=== PATIENT | female | born 1940 | race Caucasian/White ===

== ENCOUNTER 2017-08-25 11:44 | Inpatient (IN) | payer MEDICARE, OTHER ==
[~2017-08-25] VITALS: Ht 160 cm; Wt 79.8 kg
[~2017-08-25 11:44] MED LIST: AMBIEN 5 MG TABL5 M1 PO; ASPIR 8181 MG PO; COREG3.125 MG PO; CYMBALTA20 MG PO; ELIQUIS5 MG PO; HYDROCODON-ACE1 EAC7 PO; KLOR-CON 1010 MEQ PO; LASIX 40 MG TAB40 M2 PO; LIPITOR10 MG PO; LISINOPRIL20 MG PO; NITROGLYCERIN0.4 MG SUBLING; OMEPRAZOLE40 MG PO; PACERONE 200 M200 M1 PO; PEPCID20 MG PO; PLAVIX 75 MG TA75 M1 PO; PRINIVIL5 MG PO
[2017-08-25 11:45] VITALS: BP 184/83
[2017-08-25] MEDS ORDERED: ASPIRIN81 M2 PO (11:49)
[2017-08-25] MEDS ORDERED: ELIQUIS2.5 MG PO (11:49)
[2017-08-25 12:21] LABS: ABSOLUTE EOSINOPHILS 0.1 thou/uL (0.0-0.7); ABSOLUTE LYMPHOCYTES 1.5 thou/uL (0.8-5.3); ABSOLUTE MONOCYTES 0.7 thou/uL (0.0-1.2); ABSOLUTE NEUTROPHILS 4.4 thou/uL (1.6-8.1); BASOPHILS 0.4 %; EOSINOPHILS 2.2 %; HEMATOCRIT 39.8 % (37.0-47.0); HEMOGLOBIN 13.2 gm/dL (12.0-15.0); LYMPHOCYTES 22.4 %; MCH 29.4 pg (26.0-34.0); MCHC 33.1 g/dL (28.0-37.0); MCV 88.7 fL (80.0-100.0); MONOCYTES 10.3 %; MPV 9.8 fl. (7.2-11.1); NUCLEATED RBCS 0 /100WBC; PLATELET COUNT* 195 thou/uL (150-400); POLYS 64.7 %; RBC 4.49 mil/uL (4.20-5.00); RDW-CV 15.9 % (10.5-14.5); WBC 6.8 thou/uL (4.0-11.0)
[2017-08-25 12:26] LABS: ANION GAP 5 mmol/L (7-16); BUN 22 mg/dL (7-18); CALCIUM 8.3 mg/dL (8.5-10.1); CHLORIDE 107 mmol/L (98-107); CO2 30 mmol/L (21-32); CREATININE 1.3 mg/dL (0.6-1.3); GLUCOSE 100 mg/dL (70-99); POTASSIUM 4.7 mmol/L (3.5-5.1); SODIUM 142 mmol/L (136-145)
[2017-08-25 12:31] LABS: APTT 28.7 Seconds (25.0-31.3); PROTIME 10.1 Seconds (9.20-11.50)
[2017-08-25 12:42] LABS: ALKALINE PHOSPHATASE 97 U/L (46-116); SGOT 22 U/L (15-37); SGPT 27 U/L (30-65); TOTAL BILIRUBIN 0.2 mg/dL (<0.1-1.0); TOTAL PROTEIN 6.7 g/dL (6.4-8.2); TROPONIN-I LEVEL <0.06 ng/mL (<0.06)
[2017-08-25 13:07] LABS: URINE BILIRUBIN NEGATIVE (Negative); URINE BLOOD 1+ (Negative); URINE CLARITY CLEAR; URINE COLOR YELLOW; URINE GLUCOSE-RANDOM NEGATIVE (Negative); URINE KETONES TRACE (Negative); URINE LEUKOCYTES-REFLEX NEGATIVE (Negative); URINE NITRITE-REFLEX NEGATIVE (Negative); URINE PROTEIN NEGATIVE (Negative); URINE SPECIFIC GRAVITY 1.025 (1.005-1.030); URINE UROBILINOGEN 0.2 E.U./dl (0.2-1.0)
[2017-08-25 13:14] LABS: BACTERIA-REFLEX 1-9 Few /HPF (None Seen); CASTS None Seen /LPF (None Seen); CRYSTALS None Seen /LPF (None Seen); MUCUS None Seen strn/LPF (None Seen); SQUAMOUS 0-3 Few /LPF (0-3); URINE RBC 3-10 Few /HPF (0-2); URINE WBC-REFLEX 0-5 Rare /HPF (0-5)
[2017-08-25 14:45] VITALS: BP 148/66
--- NOTE | 2017-08-25 14:50 | EKG ---
[place] [address] ELECTROCARDIOGRAM REPORT Name: EVE COLLADO Room: [address] ADM IN .R.#: [id number] Admission: 08/25/17 Attend Phys: Veronica Long Discharge: Date of : 42 Report #: [id number] THIS REPORT FOR: //name// [facility] ED Test Date: 2017-08-25 Test Time: 12:30:23 Pat Name: EVEVINCENT MISTRYKLEBER Department: Room: [facility] Gender: F Denture Packer: JOAN : 1940 Requested By: Lance Minaya Order Number: [id number] MD: Gary Thomas Measurements Intervals Aurora Rate: 71 P: 13 WV: 181 QRS: -22 QRSD: 101 T: 19 QT: 397 QTc: 432 Interpretive Statements Sinus rhythm Borderline left axis deviation Borderline T abnormalities, anterior leads Compared to ECG 06/01/2016 07:41:05 Ventricular premature complex(es) no longer present Left ventricular hypertrophy no longer present Q waves no longer present Prolonged QT interval no longer present T-wave abnormality still present Electronically Signed On 08-25-2017 14:49:59 CDT by Gary Thomas [email or web address] <ELECTRONICALLY SIGNED> By: Gary Thomas MD, FACC 08/25/17 1449 1230 1230 Gary Thomas MD, FAC /EPI
[2017-08-25 15:40] VITALS: BP 143/61
[2017-08-25 19:45] VITALS: BP 111/60
[2017-08-26 05:06] LABS: MCH 29.6 pg (26.0-34.0); MCHC 33.8 g/dL (28.0-37.0); MCV 87.7 fL (80.0-100.0); MPV 10.1 fl. (7.2-11.1); RBC 3.77 mil/uL (4.20-5.00); RDW-CV 15.8 % (10.5-14.5); WBC 8.6 thou/uL (4.0-11.0)
[2017-08-26 05:15] LABS: APTT 29.3 Seconds (25.0-31.3); INR 1.1; PROTIME 10.4 Seconds (9.20-11.50)
[2017-08-26 05:18] LABS: HEMOGLOBIN 11.1 gm/dL (12.0-15.0)
[2017-08-26 05:24] LABS: ALBUMIN 2.5 g/dL (3.4-5.0); CALCIUM 7.9 mg/dL (8.5-10.1); CREATININE 1.2 mg/dL (0.6-1.3); POTASSIUM 4.7 mmol/L (3.5-5.1); TOTAL BILIRUBIN 0.4 mg/dL (<0.1-1.0); TOTAL PROTEIN 5.6 g/dL (6.4-8.2)
[2017-08-26 16:40] VITALS: BP 134/64
[2017-08-26 19:50] VITALS: BP 150/52
[2017-08-27 00:21] VITALS: BP 127/71
[2017-08-27 01:18] VITALS: BP 127/71
[2017-08-27 04:15] VITALS: BP 125/53
[2017-08-27 04:29] LABS: ALBUMIN 2.4 g/dL (3.4-5.0); CALCIUM 8.1 mg/dL (8.5-10.1); CREATININE 1.3 mg/dL (0.6-1.3); HEMATOCRIT 33.2 % (37.0-47.0); HEMOGLOBIN 11.1 gm/dL (12.0-15.0); MCH 29.7 pg (26.0-34.0); MCHC 33.5 g/dL (28.0-37.0); MCV 88.5 fL (80.0-100.0); MPV 10.4 fl. (7.2-11.1); RBC 3.75 mil/uL (4.20-5.00); RDW-CV 15.6 % (10.5-14.5); TOTAL BILIRUBIN 0.3 mg/dL (<0.1-1.0); TOTAL PROTEIN 5.7 g/dL (6.4-8.2); WBC 9.5 thou/uL (4.0-11.0)
[2017-08-27 07:44] VITALS: BP 125/59
[2017-08-27 10:19] VITALS: BP 127/71
[2017-08-27 21:00] VITALS: BP 135/61
[2017-08-28 00:05] VITALS: BP 159/66
[2017-08-28 04:05] VITALS: BP 141/59
[2017-08-28 04:32] LABS: HEMATOCRIT 27.4 % (37.0-47.0); HEMOGLOBIN 9.2 gm/dL (12.0-15.0); MCH 29.7 pg (26.0-34.0); MCHC 33.6 g/dL (28.0-37.0); MCV 88.3 fL (80.0-100.0); MPV 10.3 fl. (7.2-11.1); RBC 3.1 mil/uL (4.20-5.00); WBC 15.2 thou/uL (4.0-11.0)
[2017-08-28 04:44] LABS: CALCIUM 7.9 mg/dL (8.5-10.1); CREATININE 1.2 mg/dL (0.6-1.3); POTASSIUM 4.9 mmol/L (3.5-5.1); TOTAL BILIRUBIN 0.2 mg/dL (<0.1-1.0); TOTAL PROTEIN 5.2 g/dL (6.4-8.2)
--- NOTE | 2017-08-28 07:40 | OP ---
[address] [address] OPERATIVE REPORT Name: EVE COLLADO Room: [address] IN .R.#: [id number] Admission: 08/25/17 Attend Phys: Veronica Long Discharge: Date of : 42 Report #: [id number] THIS REPORT FOR: //name// CC: Parisa Cantu DICTATED BY: Colby Lawler DO DATE OF SERVICE: 08/27/2017 PREOPERATIVE DIAGNOSIS: Periprosthetic right distal femur fracture. POSTOPERATIVE DIAGNOSIS: Periprosthetic right distal femur fracture. PRIMARY SURGEON: Canelo Navas DO FIBER DESIGN ENGINEER: Colby Lawler DO SECOND BARBERING INSTRUCTOR: Joselo Manjarrez DO PROCEDURE PERFORMED: Right distal femoral replacement. ANESTHESIA: General with local capsular block. ESTIMATED BLOOD LOSS: 500 mL. SPECIMENS: Tibial and femoral total knee components. COMPLICATIONS: None. TOURNIQUET: 110 minutes. ANTIBIOTICS: 2 grams Ancef IV preoperatively. IMPLANTS: A Link distal femoral replacement with a small right femoral component, a 40 mm femoral coupling component, 130 mm length x 14 mm in width femoral stem, a size small tibial component with a 5 mm buildup and a 12 mm x 100 mm intramedullary stem. One Dall-Miles cable prophylactically and 2 bags of Simplex cement with antibiotics. INDICATIONS FOR PROCEDURE: The patient is a 77-year-old female that unfortunately suffered the above-mentioned injury earlier this week due to her fracture being very distal to her component. It was recommended she undergo a distal femoral replacement due to limited bone stock. I did not feel her injury was amenable to open reduction and internal fixation. She presents today for [address] [address] OPERATIVE REPORT Name: LYNDAEVE QUACH Rima Room: [address] IN .R.#: [id number] Admission: 08/25/17 Attend Phys: Veronica Long Discharge: Date of : 42 Report #: [id number] above-mentioned procedure. Risks, benefits, complications and alternatives of surgery have been thoroughly reviewed with her and she is wishing to proceed. DESCRIPTION OF PROCEDURE: The patient taken to the OR suite, placed supine on OR table, given the benefit of general anesthetic. A well-padded tourniquet placed in the right upper thigh. She was then prepped and draped in the usual sterile fashion. Prior to procedure, timeout was taken confirming correct site, patient and procedure. Procedure began utilizing her prior midline incision from her previous total knee scar. Dissection was carried down through skin and subcutaneous tissue to the level of the joint capsule. A second knife was used to form a medial parapatellar capsulotomy. This was extended proximally, splitting the quadriceps muscle and distally down to the tibial tubercle. There was fracture hematoma encountered. No signs of infection or loosening of her components. A medial periosteal sleeve was developed off the tibia and the patella was subluxated laterally. The inline traction was placed on the leg and held to approximate her joint line. A marked measuring 95 mm proximal on the femoral shaft was then made. A second line was made referencing her anterior portion of the femur for rotation. We then proceeded to extract the poly and femoral component. The remaining capsule was released directly off bone from the femoral component with electrocautery. There was significant bone loss. It did not appear that this component would have been held. Adequate fixation of a plate was utilized. There was significant comminution as well. All excess bone off the distal femur was removed and the component was removed. A lap sponge was placed on the femoral shaft and this was used to elevate it and hold it superior for retraction. We then proceeded to explant the tibial component. This was well seated. There do not appear to be any signs of loosening. This was done using flexible osteotomes. There was minimal bone loss when removing his prosthesis. No signs of infection or osteolysis seen. We then proceeded to ream the tibial shaft. This was at a depth of 100 mm range up to a size 12 stem. A small trial baseplate was placed in appropriate rotation and referencing the medial third tibial tubercle. The proximal tibia was repaired with a keel punch and intramedullary reamer proximally as well. The trial tibial component was then placed. We then directed our attention to the femur referencing her prior samantha. Remaining bone of the distal femur was cut at 95 mm length. The femoral canal was then reamed with a 130 mm reamer up to a size 13. This provided good fit within the cortical bone. We then placed our trial femoral component and this was connected to the tibial component with the hinged post. A 40 mm paunch trimmer provided the appropriate amount of joint tensioning and the knee was taken through range of motion. Patella was found to be tracking well. The patella was not resurfaced and do not appear to have any signs of loosening. Minimal wear in the patellar button. Next, all implants were removed. The tibia and femur were thoroughly irrigated with Pulsavac. Final components were assembled on the back table and cemented with antibiotics was mixed. Final implants were placed beginning with the tibial stem and tray followed by the femur. Femoral rotation was adjusted by referencing her anterior line, tibial rotation via the tibial tubercle. Both components were [address] [place] [address] OPERATIVE REPORT Name: EVE COLLADO Room: [address] IN M.R.#: [id number] Admission: 08/25/17 Attend Phys: Veronica Long Discharge: Date of : 42 Report #: [id number] while cement adequately carried. All excess cement was removed. Once cement had set, the final hinged paunch trimmer was then placed with the final polyethylene insert. The knee was taken through range of motion. Patella was found to be tracking well. Alignment in good position. TXA was placed to the wound. Tourniquet was let down for a total time of 110 minutes. Hemostasis was obtained. There did not appear to be any arterial bleeding. A local capsular block was performed. A medium Hemovac drain was placed. The capsule was closed with interrupted #1 Vicryl followed by interrupted 2-0 Vicryl subcuticular and neal for skin. Sterile dressings were applied with a compression dressing. The patient tolerated procedure well. She was transferred to the PACU in stable condition. All sponge and needle counts correct x 2. <ELECTRONICALLY SIGNED> By: Cuong Tony DO 08/28/17 0740 1607 1800Canelo Navas DO /nt
[2017-08-28 08:00] VITALS: BP 110/50
[2017-08-28 16:29] VITALS: BP 141/51
[2017-08-28 22:00] VITALS: BP 146/60
[2017-08-28 23:48] VITALS: BP 142/58
[2017-08-29 03:48] VITALS: BP 121/51
[2017-08-29 04:01] LABS: HEMATOCRIT 23.7 % (37.0-47.0); HEMOGLOBIN 7.9 gm/dL (12.0-15.0); MCH 29.7 pg (26.0-34.0); MCHC 33.4 g/dL (28.0-37.0); MCV 88.9 fL (80.0-100.0); MPV 9.9 fl. (7.2-11.1); RBC 2.67 mil/uL (4.20-5.00); RDW-CV 15.2 % (10.5-14.5); WBC 12.5 thou/uL (4.0-11.0)
[2017-08-29 04:30] LABS: ALBUMIN 1.9 g/dL (3.4-5.0); CALCIUM 7.7 mg/dL (8.5-10.1); POTASSIUM 4.3 mmol/L (3.5-5.1); TOTAL BILIRUBIN 0.3 mg/dL (<0.1-1.0); TOTAL PROTEIN 5.1 g/dL (6.4-8.2)
[2017-08-29 08:20] VITALS: BP 135/42
[2017-08-29 16:00] VITALS: BP 91/42
[2017-08-29 21:45] VITALS: BP 123/55
[2017-08-30 00:06] VITALS: BP 120/53
[2017-08-30 04:00] VITALS: BP 104/38
[2017-08-30 04:10] LABS: HEMATOCRIT 22.1 % (37.0-47.0); HEMOGLOBIN 7.5 gm/dL (12.0-15.0); MCH 29.4 pg (26.0-34.0); MCHC 33.7 g/dL (28.0-37.0); MCV 87.2 fL (80.0-100.0); RBC 2.53 mil/uL (4.20-5.00); RDW-CV 15.1 % (10.5-14.5); WBC 11.6 thou/uL (4.0-11.0)
[2017-08-30 04:31] LABS: ALBUMIN 1.7 g/dL (3.4-5.0); CALCIUM 7.6 mg/dL (8.5-10.1); POTASSIUM 4.2 mmol/L (3.5-5.1); TOTAL BILIRUBIN 0.3 mg/dL (<0.1-1.0); TOTAL PROTEIN 5.1 g/dL (6.4-8.2)
[2017-08-30 08:30] VITALS: BP 125/53
[2017-08-30 16:00] VITALS: BP 104/44
[2017-08-30 20:47] VITALS: BP 141/64; BP 150/79
[2017-08-31 01:15] VITALS: BP 125/47
[2017-08-31 04:26] LABS: HEMATOCRIT 22.2 % (37.0-47.0); HEMOGLOBIN 7.4 gm/dL (12.0-15.0); MCH 29.3 pg (26.0-34.0); MCHC 33.2 g/dL (28.0-37.0); MCV 88.4 fL (80.0-100.0); MPV 9.3 fl. (7.2-11.1); RBC 2.51 mil/uL (4.20-5.00); RDW-CV 15.4 % (10.5-14.5); WBC 9.4 thou/uL (4.0-11.0)
[2017-08-31 04:44] LABS: ALBUMIN 1.6 g/dL (3.4-5.0); CREATININE 1.1 mg/dL (0.6-1.3); POTASSIUM 4.5 mmol/L (3.5-5.1); TOTAL BILIRUBIN 0.3 mg/dL (<0.1-1.0); TOTAL PROTEIN 5.1 g/dL (6.4-8.2)
[2017-08-31 08:30] VITALS: BP 143/56
--- NOTE | 2017-08-31 10:59 | S ---
[place] [address] SURGICAL PATH RPT PROCEDURE Name: MELI FARFAN Room: [address] IN M.R.#: [id number] Admission: 08/25/17 Date of : 42 Discharge: Report #: [id number] Path Case #: [id number] PATHOLOGY REPORT COLLECTION DATE: 08/27/2017 RECEIVED DATE: 08/27/2017 SUBMITTING PHYS: Dr. Canelo Navas OTHER PHYS: Dr. Suhail Thomas SPECIMEN(S) RECEIVED: A.R femur, yeimy prosthetic implants and fracture * * * * * * * * * * * * FINAL DIAGNOSIS: Right periprosthetic fracture femur and implants (explants): - Benign and viable bone fragments including hematopoietic elements with evidence of fracture including fresh stromal hemorrhage. - Grossly-identified prosthetic knee components and orthopedic cement. (JOSHUA:pit; 08/31/2017) PATHOLOGIST: Wade Poole M.D. REPORT ELECTRONICALLY SIGNED BY: Wade Poole M.D. DATE/TIME: 08/31/2017 10:58 * * * * * * * * * * * * GROSS PATHOLOGY: The specimen is received in formalin labeled "Meli Farfan, right periprosthetic fracture femur and explants," and additionally labeled on the requisition as, "right femur fracture periprosthetic implants and fracture". Received are multiple segments of bone measuring 13.1 x 7.7 x 3.7 cm in aggregate dimensions. Hogshead Liner sections are submitted in cassette A1, following decalcification. Also received within the specimen container is a segment of white plastic measuring 6.7 x 4.1 x 2.3 cm, a metallic anvil measuring 3.1 x 4.3 x 4.8 cm, and a segment of curved silver metal, with adherent bone cement and bone, measuring 8.3 x 6.3 x 5.7 cm. Gross photographs are taken. (CAA; 08/28/2017) CLINICAL HISTORY: Right distal [place] [address] SURGICAL PATH RPT PROCEDURE Name: MELI FARFAN Room: [address] IN M.R.#: [id number] Admission: 08/25/17 Date of : 42 Discharge: Report #: [id number] Path Case #: [id number] INITIAL CPT CODE(S): A; 22554, 07981 Professional services performed by [facility] at [facility] [address] [place] [address] Technical services performed by [facility] at [address] [place] [address], [facility] [address] [address]. [facility] [address] [place] [address] PHONE: [phone] DIRECTOR: Vladislav Batres M.D. * * * END OF REPORT * * *
[2017-08-31 11:34] VITALS: BP 129/50
[2017-08-31] MEDS ORDERED: OXYCODONE HCL 55 MG PO (12:27)
[2017-08-31] MEDS ORDERED: PHENERGAN 25 MG25 M1 PO (12:28)
[2017-08-31] MEDS ORDERED: PROTONIX40 M1 PO (12:29)
[2017-08-31] MEDS ORDERED: TYLENOL325 MG PO (12:31)
[2017-08-31] MEDS ORDERED: ONDANSETRON HCL4 M2 PO (12:31)
[2017-08-31] MEDS ORDERED: NORCO 5-325 TA1 EACH PO (12:33)
[2017-08-31] MEDS ORDERED: MELATONIN5 M4 PO (12:35)
[2017-08-31] MEDS ORDERED: MILK OF MA2400 MG/10 PO (12:36)
[2017-08-31] MEDS ORDERED: MAG-AL PLUS SUS30 ML PO (12:37)
[2017-08-31] MEDS ORDERED: AMBIEN 5 MG TABL5 M1 PO (12:38)
[2017-08-31] MEDS ORDERED: BISACODYL SUPP10 MG PO (12:39)
[2017-08-31] MEDS ORDERED: BENADRYL25 MG PO (12:40)
[2017-08-31] MEDS ORDERED: COLACE100 MG PO (12:41)
[2017-08-31] MEDS ORDERED: ASPIRIN325 PO (12:44)
[2017-08-31] MEDS ORDERED: IRON325 PO (15:34)
--- NOTE | 2017-09-14 15:06 | CON ---
[address] [address] CONSULTATION Name: EVE COLLADO Room: [address] IN M.R.#: [id number] Admission: 08/25/17 Attend Phys: Veronica Long Discharge: 08/31/17 Date of : 42 Report #: [id number] THIS REPORT FOR: //name// CC: Parisa Cantu The patient is admitted to Orthopedic Surgery status post fall, sustaining a right periprosthetic distal femur fracture. The patient was appropriate for rehabilitation on the day the consult was requested. Admission to inpatient rehabilitation was also facilitated, therefore full consultation was not completed, full to inpatient rehabilitation history and physical has been completed. <ELECTRONICALLY SIGNED> By: Robyn Hodgson DO 09/14/17 1506 1055 [id number] Hodgson DO /nt
== END 2017-08-31 14:50 | DRG 466 ==
LOC: M.ERS 11:44 → M.ORTHSURG 13:13 → M.TBA-ER 13:13 → M.ORTHSURG 14:40
PROVIDERS: Family Medicine; ADMIT Internal Medicine
PROC: 3E0T3BZ Introduction of Anesthetic Agent into Peripheral Nerves and Plexi, Percutaneous Approach (ICD-10-PCS; principal; 2017-08-27)
PROC: 0SRV0J9 Replacement of Right Knee Joint, Tibial Surface with Synthetic Substitute, Cemented, Open Approach (ICD-10-PCS; 2017-08-27)
PROC: 0SRT0J9 Replacement of Right Knee Joint, Femoral Surface with Synthetic Substitute, Cemented, Open Approach (ICD-10-PCS; 2017-08-27)
PROC: 0SPT0JZ Removal of Synthetic Substitute from Right Knee Joint, Femoral Surface, Open Approach (ICD-10-PCS; 2017-08-27)
PROC: 0SPV0JZ Removal of Synthetic Substitute from Right Knee Joint, Tibial Surface, Open Approach (ICD-10-PCS; 2017-08-27)
DX: M97.11XA Periprosthetic fracture around internal prosthetic right knee joint, initial encounter (principal); E43 Unspecified severe protein-calorie malnutrition; Z96.651 Presence of right artificial knee joint; E78.5 Hyperlipidemia, unspecified; I50.9 Heart failure, unspecified; I11.0 Hypertensive heart disease with heart failure; K21.9 Gastro-esophageal reflux disease without esophagitis; D64.9 Anemia, unspecified; I48.91 Unspecified atrial fibrillation; I25.10 Atherosclerotic heart disease of native coronary artery without angina pectoris; Z90.49 Acquired absence of other specified parts of digestive tract; Z79.899 Other long term (current) drug therapy; Z79.82 Long term (current) use of aspirin; I25.2 Old myocardial infarction; Z68.31 Body mass index [BMI] 31.0-31.9, adult

== ENCOUNTER 2017-08-31 13:51 | Inpatient (IN) | payer MEDICARE, OTHER ==
[~2017-08-31] VITALS: Ht 162.6 cm; Wt 80.2 kg
[~2017-08-31 13:51] MED LIST changes: +ASPIRIN325 PO; +ASPIRIN81 M2 PO; +BENADRYL25 MG PO; +BISACODYL SUPP10 MG PO; +COLACE100 MG PO; +ELIQUIS2.5 MG PO; +MAG-AL PLUS SUS30 ML PO; +MELATONIN5 M4 PO; +MILK OF MA2400 MG/10 PO; +NORCO 5-325 TA1 EACH PO; +ONDANSETRON HCL4 M2 PO; +OXYCODONE HCL 55 MG PO; +PHENERGAN 25 MG25 M1 PO; +PROTONIX40 M1 PO; +TYLENOL325 MG PO
[2017-08-31] MEDS ORDERED: IRON325 PO (15:34)
--- NOTE | 2017-08-31 15:38 | NUR ---
PATIENT REMAINED ALERT AND ORIENTED. VSS, OXYGEN 99% ON 2 LITERS OF OXYGEN. LAST BM WAS 08/25/17. PATIENT HAS BEEN DECLINING MILK OF MAG BUT TOOK IT THIS AM. IV PATENT IN THE RIGHT FOREARM SALINE LOCKED. HEMOGLOBIN 7.4, IRON WAS GIVEN. PO PAIN MEDICATION GIVEN PRIOR TO THERAPY. PAIN MANAGED WITHOUT MEDICATION FOR THE REMAINDER OF THE SHIFT. FALL PRECAUTIONS MAINTAINED. BED AND CHAIR ALARM USED. CALL LIGHT WITHIN REACH. PATIENT WAS TRANSFERRED TO REHAB AT 1450. REPORT GIVEN TO KELLY CALDWELL.
[2017-08-31 16:03] VITALS: BP 134/55
--- NOTE | 2017-08-31 17:56 | NUR ---
pt admitted to 320 from ortho and is alert and orientated with daughter and all belongings. daughter has gone home this evening to bring clothing for pt. pt denies pain and has ambulated to bathroom with walker, gaitbelt and steady gait and min assist of 1. pt voids well and reports not having bm since surgery. pt was given mom this am.dressing to rt. knee dry and intact. pt has polar care to use as needed and bilat gela hose on.pt orientated to rehab and expectations.pt up to recliner for supper.
[2017-08-31 19:49] VITALS: BP 123/54
--- NOTE | 2017-08-31 23:09 | NUR ---
ASSUMED CARE AT 1930. PATIENT S/P RT FEMUR FX. RESTING IN BED VISITING WITH FAMILY AT CHANGE OF SHIFT. TURNS SELF IN BED, REFUSES ASSIST. REFUSES TO OFFLOAD HEELS DESPITE EDUCATION. TAKES PILLS WHOLE WITH WATER WITHOUT DIFF. POLAR PACK ON RT KNEE. HAD LARGE BM AT THE END OF THE DAY SHIFT. SALINE LOCK TO RT FOREARM INTACT. GOT SLEEPING PILL AND PAIN MED AT HS. SEE AUG. HOURLY ROUNDS CONTINUE. BED ALARM ON. CALL LITE IN REACH.
[2017-09-01 05:35] LABS: CALCIUM 8.2 mg/dL (8.5-10.1); CREATININE 1.1 mg/dL (0.6-1.3); POTASSIUM 4.6 mmol/L (3.5-5.1)
[2017-09-01 05:39] LABS: HEMATOCRIT 21.7 % (37.0-47.0); HEMOGLOBIN 7.3 gm/dL (12.0-15.0); MCH 29.6 pg (26.0-34.0); MCHC 33.6 g/dL (28.0-37.0); MCV 87.9 fL (80.0-100.0); MPV 9.1 fl. (7.2-11.1); RBC 2.47 mil/uL (4.20-5.00); RDW-CV 15.3 % (10.5-14.5); WBC 8.3 thou/uL (4.0-11.0)
--- NOTE | 2017-09-01 06:02 | NUR ---
SLEPT MOST OF THE NIGHT. UP TO VOID ONCE. REFUSED ASSIST WITH TURNING. DID CONSENT TO HAVING HEELS OFFLOADED WITH PILLOWS. POLAR CARE CONTINUES TO INCISION SITE. UP WITH SBA, GAIT BELT, WALKER. HOURLY ROUNDS CONTINUE. BED ALARM ON. CALL LITE IN REACH.
[2017-09-01 07:30] VITALS: BP 134/50
--- NOTE | 2017-09-01 13:30 | NUR ---
Nutrition: Pt admitted to Rehab with Rt femur FX. H/o CKD III, CHF, HTN. Labs: BG ok, alb 1.6, prealb 10.3. RX: Lasix, carvedilol, Fe. Wt: 189#. Appearently, pt has had poor appetite. Boost+ is ordered. Mild risk. Will follow pt weekly.
--- NOTE | 2017-09-01 15:30 | NUR ---
SW met with pt to complete initial assessment, introduce self, and SW role. Pt alert and oriented. Pt anticipates to be able to return home with dtr at dc. Pt has a rolling walker, wc, cane, BSC and has preference for HH through [facility]. Pt did not express any concerns or questions at this time. SW to continue to follow to assist with safe dc planning.
--- NOTE | 2017-09-01 18:49 | NUR ---
PT HAS BEEN UP TO RECLINER AND CALLS FOR ASSIST TO BATHROOM WITH GAITBELT AND WALKER AND 1 ASSIST. PRN FOR PAIN GIVEN THIS AM. DRESSING TO RT.KNEE DRY AND INTACT WITH BILAT ASHANTI HOSE ON. PT ENCOURAGED TO EAT MEALS AND ATE 1/2 OF SUPPER. PT DRINKS FLUIDS WELL. PT VOIDING WELL.PT PROGRESSES TOWARDS GOALS AND HOURLY ROUNDING CONTINUES.
[2017-09-01 20:07] VITALS: BP 104/40
--- NOTE | 2017-09-01 20:15 | NUR ---
RESTING QUIELTY IN BED WATCHING TV. DEPRESSED AFFECT. PAIN MEDS GIVEN FOR C/O RIGHT KNEE PAIN. 02 NC AT TWO LITERS. 02 SAT 99% TOOK MEDS WHOLE WITH WATER WITHOUT DIFFICULTY.
--- NOTE | 2017-09-02 05:49 | NUR ---
UP X ONE DURING THE NIGHT TO THE BATHROOM TO VOID. NO FURTHER C/O PAIN. HOURLY ROUNDING IN PROGRESS.
[2017-09-02 08:00] VITALS: BP 145/48
--- NOTE | 2017-09-02 11:07 | NUR ---
PT CARE ASSUMED THIS AM, ASSESSMENT AND VITAL SIGNS COMPLETED DOCUMENTED. PT ASSISTED OUT OF BED, THEN TO BATHROOM. PT IS A STAND BY ASIST WITH GAIT BELT AND WALKER. PT WAS ABLE TO DO HER OWN HYGEINE AND CLOTHING ADJUSTMENTS. AFTER TOILETING SHE WASHED HER HANDS AND AMBULATED TO THE RECLINER WHERE SHE ATE BREAKFAST. PT TAKES HER PILLS WHOLE WITH WATER. INCISION TO THE RIGHT KNEE IS COVERED WITH A MEPILEX, IT REMAINS CLEAN, DRY AND INTACT. FALL PRECAUTIONS AND HOURLY ROUNDING IN PLACE.
--- NOTE | 2017-09-02 12:26 | NUR ---
NUTRITION: Rehab follow up. Pt eating 50-100% of meals. Physician indicated "protein malnutrition." Boost+ ordered. Wt stable, 181#. Severely depleted visceral protein stores - alb 1.6, prealb 10.3. Please continue Boost+. Will follow weekly.
--- NOTE | 2017-09-02 14:30 | NUR ---
SW met with pt and pt dtr to review team conference summary and discuss safe dc planning and team's recommendation to reassess pt length of stay during team conference on next Thursday. SW relayed the reports from therapists on how pt is progressing and the levels of functioning in mobility and ADLs. Pt and pt dtr did not have any questions or concerns. SW to continue to follow to assist with safe dc planning.
[2017-09-02 19:46] VITALS: BP 120/42
--- NOTE | 2017-09-02 21:10 | NUR ---
RESTING QUIETLY IN BED AND WATCHING TV. PAIN MEDS GIVEN FOR C/O RIGHT KNEE PAIN RATED "8". TOOK MEDS WHOLE ALL AT ONCE WITH WATER. IN BETTER SPIRITS TONIGHT. SMILING. MORE TALKATIVE.
[2017-09-03 04:37] LABS: HEMATOCRIT 21.2 % (37.0-47.0); HEMOGLOBIN 7.2 gm/dL (12.0-15.0); MCH 29.9 pg (26.0-34.0); MCHC 33.9 g/dL (28.0-37.0); MCV 88.2 fL (80.0-100.0); MPV 8.3 fl. (7.2-11.1); RBC 2.41 mil/uL (4.20-5.00); RDW-CV 15.4 % (10.5-14.5); WBC 9.1 thou/uL (4.0-11.0)
--- NOTE | 2017-09-03 05:13 | NUR ---
UP X 3 DURING THE NIGHT TO THE BATHROOM TO VOID. NO FURTHER C/O PAIN. HOURLY ROUNDING IN PROGRESS.
[2017-09-03 07:48] VITALS: BP 130/57
--- NOTE | 2017-09-03 16:40 | NUR ---
AM ASSESSMENT AND VITAL SIGNS COMPLETED DOCUMENTED. PT CONTINUES TO BE PLEASANT AND COOPERATIVE. PT COMPLETED ALL SCHEDULED THERAPY SESSIONS TODAY AND IS MAKING PROGRESS TOWARD DISCHARGE GOALS. PT HAS BEEN USING THE CALL LIGHT FOR ASSISTANCE WHEN NEEDED. DRESSING REMAINS INTACT TO RIGHT KNEE. PT ENCOURAGED TO ELEVATE HER LEGS WHEN IN THE RECLINER. PAIN WELL CONTROLLED AT THIS TIME. FALL PRECAUTIONS AND HOURLY ROUNDING IN PLACE.
[2017-09-03 20:00] VITALS: BP 149/63
--- NOTE | 2017-09-04 05:20 | NUR ---
ASSUMED CARES AT 1915. PT ALERT AND ORIENTED. PLEASANT. S/P RIGHT FEMUR ORIF. WBAT RLE. TAKES PILLS WHOLE WITHOUT ISSUES. PAIN MEDS GIVEN NEEDED. SHE IS A MIN ASSIST WITH GAIT BELT AND WALKER. UP TO BATHROOM FEW TIMES. DID WEAR PULLUPS TONIGHT SHE HAS MORE DRIBBLING DURING THE NIGHT. DOES OWN CARES. PT LAID ON SIDE COUPLE TIMES DURING THE NIGHT BUT OTHERWISE WANTED TO LAY ON BACK. USED CALL LIGHT APPROPRIATELY. BED ALARM ON.
[2017-09-04 07:30] VITALS: BP 118/52
--- NOTE | 2017-09-04 16:36 | NUR ---
PT HAS AMBULATED TO DINNINGROOM WITH WALKER GAITBELT AND MIN ASSIST OF 1 FROM ROOM TO DINNINGROOM WITH STEADY GAIT. PRN FOR PAIN GIVEN THIS AM WITH GOOD EFFECT. DRESSING TO RT.KNEE DRY AND INTACT WITH BILAT ASHANTI HOSE ON. PT CONTINENT OF B+B AND CALLS FOR ASSIST TO BATHROOM. PT REMAINS ALERT AND ORIENTATED AND PROGRESSES TOWARDS GOALS, HOURLY ROUNDING CONTINUES.
[2017-09-04 20:00] VITALS: BP 121/51
--- NOTE | 2017-09-04 22:10 | NUR ---
ASSUMED CARE AT 1930. S/P RT FEMUR FX. RESTING IN BED. REFUSES POLAR PACK AT THIS TIME, STATES SHE USES IT FOR A LITTLE WHILE AFTER THERAPIES. SURGICAL DRESSING C/D/I TO RT KNEE. WANTS TO KEEP ASHANTI HOSE ON THIS EVENING BECAUSE SHE STAYS WARMER. MOVES FOOT WELL, BUT HAS TROUBLE RAISING RLE OFF BED. DID ALLOW HEELS TO BE OFFLOADED. GOT PAIN MED AND SLEEPER AT HS. SEE MAR. NO BM SINCE 09/01, REFUSES MOM OR PRUNE JUICE. TAKES PILLS WHOLE WITH WATER. UP WITH GAIT BELT, WALKER, SBA. CALL LITE IN REACH. BED ALARM ON. HOURLY ROUNDS CONTINUE.
[2017-09-05 04:23] LABS: HEMATOCRIT 21.8 % (37.0-47.0); HEMOGLOBIN 7.3 gm/dL (12.0-15.0); MCH 29.6 pg (26.0-34.0); MCHC 33.5 g/dL (28.0-37.0); MCV 88.4 fL (80.0-100.0); RBC 2.47 mil/uL (4.20-5.00); RDW-CV 15.7 % (10.5-14.5); WBC 9.9 thou/uL (4.0-11.0)
--- NOTE | 2017-09-05 05:40 | NUR ---
SLEPT MOST OF THE NIGHT. NO FURTHER C/O PAIN. VOIDED PER TOILET ONCE AFTER BEDTIME. UP WITH SBA, GAIT BELT, WALKER. TURNS SELF. REFUSES ASSIST AND REFUSES OFFLOADING HEELS CONSISTENTLY THROUGH NIGHT. HOURLY ROUNDS CONTINUE, BED ALARM ON. CALL LITE IN REACH.
[2017-09-05 07:30] VITALS: BP 137/48
--- NOTE | 2017-09-05 16:56 | NUR ---
ASSUMMED CARE OF PT AT 0730, PT ALERT AND ORIENTED, PT TRANSFERS WITH SBA GB AND WALKER, PT COMPLINS OF PAIN IN RIGHT KNEE, MEDICATED PER ORDERS, TAKING FOOD AND FLUIDS WELL, PT HAD LARGE BM THIS SHIFT, DRESSING TO RIGHT KNEE C/D/I, TEDS TO BILATERAL LEGS, LEGS ELEVATED, PT AMBULATES TO TOILET, VOIDS WITHOUT DIFFICULTY, PARTICIPATED IN ALL THERAPIES, HOURLY ROUNDING COMPLETED, ASSESSMENT COMPLETE, WILL CONTINUE TO MONITOR.
[2017-09-05 20:00] VITALS: BP 134/52
--- NOTE | 2017-09-05 22:37 | NUR ---
ASSUMED CARE AT 1930. S/P RT FEMUR FX AND RT TKA. RESTING IN BED. REMOVED ASHANTI HOSE PER SELF, STATES OT SHOWED HER HOW TO. DSSG C/D/I. DECLINED POLAR CARE AT THIS TIME, PREFERS TO USE IT AFTER THERAPIES. UP WITH SBA, GAIT BELT, WALKER, TAKES PILLS WHOLE WITH WATER, NO DIFFICULTY NOTED. GIVEN PAIN MED AND SLEEPER AT HS, WITH GOOD RELIEF. TURNS SELF IN BED. DECLINES HEELS OFFLOADED. HOURLY ROUNDS CONTINUE. BED ALARM ON. CALL LITE IN REACH.
--- NOTE | 2017-09-06 05:33 | NUR ---
SLEPT MOST OF THE NIGHT EXCEPT TO VOID. TURNS SELF. UP WITH SBA, GAIT BELT, WALKER. VOIDS PER TOILET. HOURLY ROUNDS CONTINUE. BED ALARM ON. CALL LITE IN REACH.
[2017-09-06 08:00] VITALS: BP 149/49
[2017-09-06 20:00] VITALS: BP 141/58
--- NOTE | 2017-09-06 22:42 | NUR ---
ASSUMED CARE AT 1930. PATIENT S/P RT FEMUR FX WITH TKR. RESTING IN BED. REFUSES HEELS OFFLOADED. DRESSING C/D/I TO RT KNEE. PATIENT REMOVED LEFT THIGH HIGH ASHANTI PERDUE, NEEDS HELP WITH OPERATIVE SIDE BECAUSE SHE CAN'T BEND IT ENOUGH. TURNS SELF, REFUSES ASSIST. TAKES PILLS WHOLE WITH WATER. MEDICATED FOR PAIN AND SLEEP AT HS WITH GOOD RESULTS. SEE MAR. PATIENT REMOVES OWN DENTURES, AND HAS SPECIAL SOAKING SOLUTION. HOURLY ROUNDS CONTINUE. BED ALARM ON. CALL LITE IN REACH.
--- NOTE | 2017-09-06 22:58 | NUR ---
ASSUMED CARE AT 1930. PATIENT S/P RT FEMUR RX WITH TKR. RESTING IN BED. REFUSES HEELS OFFLOADED. DRESSING C/D/I TO RT KNEE. PATIENT REMOVED LEFT THIGH HIGH ASHANTI PERDUE, NEEDS HELP WITH OPERATIVE SIDE BECAUSE SHE CAN'T BEND IT ENOUGH. TURNS SELF, REFUSES ASSIST. TAKES PILLS WHOLE WITH WATER. MEDICATED FOR PAIN AND SLEEP AT HS WITH GOOD RESULTS. SEE AUG. HOURLY ROUNDS CONTINUE. BED ALARM ON. CALL LITE IN REACH.
--- NOTE | 2017-09-07 05:38 | NUR ---
SLEPT MOST OF THE NIGHT. TURN SELF. VOIDS PER TOILET. NO FURTHER C/O PAIN. HOURLY ROUNDS CONTINUE. BED ALARM ON. CALL LITE IN REACH.
[2017-09-07 08:00] VITALS: BP 132/54
--- NOTE | 2017-09-07 15:45 | NUR ---
pt has participated with therapies and calls for assist to bathroom. pt ambulates with steady gait, gaitbelt and walker with sba. pt is continent of b+b and is able to wipe self and adjust clothing. pt walks to dinningroom and eats meals with better appetite. dressing to rt.knee dry and intact with bilat gela hose on. pt progresses towards goals and hourly rounding continues.
[2017-09-07 20:00] VITALS: BP 156/56
--- NOTE | 2017-09-08 05:03 | NUR ---
ASSUMED CARES AT 1930. PT ALERT AND ORIENTED. PLEASANT. C/O PAIN TO RIGHT KNEE. PAIN MEDS GIVEN NEEDED. TAKES PILLS WHOLE WITHOUT ISSUES. SHE IS A SBA WITH GAIT BELT AND WALKER. UP TO BATHROOM. DOES OWN CARES. DRESSING TO RIGHT KNEE IS INTACT. SLEPT WELL MOST OF THE NIGHT. CALL LIGHT IN REACH AND BED ALARM ON.
[2017-09-08 08:00] VITALS: BP 126/64
--- NOTE | 2017-09-08 16:29 | NUR ---
pt has participated with therapies and calls for assist with all ambulation. pt ambulates with walker, gaitbelt and sba of 1. pt is continent of b+b and has had small soft bm. prn for pain of rt. knee given this afternoon with good effect. pt wears bilat thigh hi gela hose. pt does have edema of rt. leg this afternoon with legs elevated and polar care in place. pt denies pain of thigh or back of leg. pt is alert and orientated and progresses towards goals, hourly rounding continues.
[2017-09-08 19:45] VITALS: BP 133/34
--- NOTE | 2017-09-09 05:06 | NUR ---
ASSUMED CARES AT 1920. PT ALERT AND ORIENTED. PLEASANT. AMBIEN AND NORCO GIVEN AT BEDTIME PER PT REQUEST. TAKES PILLS WHOLE WITHOUT ISSUES. BLE EDEMA 2+. THIGH TEDS REMOVED AND PT EDUCATED ON LEG ELEVATION ONTO PILLOWS BUT REFUSED. DRESSING TO RIGHT KNEE/LEG IS INTACT. SBA WITH GAIT BELT AND WALKER. UP TO BATHROOM FEW TIMES. DOES OWN CARES. SLEPT WELL OTHERWISE. CALL LIGHT IN REACH AND BED ALARM ON.
[2017-09-09 08:12] VITALS: BP 140/66
--- NOTE | 2017-09-09 15:10 | NUR ---
SW met with pt to review team conference summary. Plan for pt to dc home with family on Thursday. services to follow. SW discussed team's mentioning of pt being able to move to the transitional living apartment and mod I trial eventually. Pt said she was in agreement with plan and was open to all of the plans. Pt dtr to visit pt kevyn and pt said she would discuss with dtr and would notify SW if any questions or concerns. SW to continue to follow to assist with safe dc planning.
--- NOTE | 2017-09-09 16:22 | NUR ---
ASSUMMED CARE OF PT AT 0730, PT ALERT AND ORIENTED, PT TRANSFERS WITH ASSIST OF 1, GB AND WALKER, PT VOIDS PER TOILET, TAKING FOOD AND FLUIDS WELL, PT COMPLAINS OF PAIN IN RIGHT KNEE, MEDICATED PER ORDERS, DRESSING TO RIGHT KNEE C/D/I. PT PARTICIPATED IN ALL THERAPIES, HOURLY ROUNDING COMPLETED, ASSESSMENT COMPLETE, WILL CONTINUE TO MONITOR.
[2017-09-09 20:00] VITALS: BP 115/41
--- NOTE | 2017-09-10 05:20 | NUR ---
ASSUMED CARES AT 1920. PT ALERT AND ORIENTED. PLEASANT. C/O PAIN TO RIGHT KNEE. PAIN MEDS GIVEN PER REQUEST. SHE IS A SBA WITH GAIT BELT AND WALKER. UP TO BATHROOM. DOES OWN CARES. SLEPT WELL. CALL LIGHT IN REACH.
[2017-09-10 07:30] VITALS: BP 130/56
--- NOTE | 2017-09-10 16:54 | NUR ---
PT HAS WORKED WITH THERAPIES TODAY WITH PRN FOR PAIN GIVEN THIS AM WITH GOOD EFFECT. PT REPORTS LESS EDEMA TO RT. LEG AND WEARS BILAT THIGH HI TEDS. PT OFTEN KEEPS RT.LEG ELEVATED WHEN UP TO RECLINER. PT CALLS FOR ASSIST TO BATHROOM AND IS CONTINENT OF B+B. PT REMAINS ALERT AND ORIENTATED AND CONTINUES TO PROGRESS TOWARDS GOALS. HOURLY ROUNDING CONTINUES.
[2017-09-10 20:22] VITALS: BP 108/43
--- NOTE | 2017-09-10 23:57 | NUR ---
ASSUMED CARE AT 1930. PATIENT S/P RT FEMUR FX. RESTING IN RECLINER UNTIL AROUND 2099. UP WITH SBA, GAIT BELT, WALKER. VOIDS PER TOILET. DRESSING C/D/I TO RT KNEE. TURN SELF. TAKES PILLS WHOLE WITH WATER. MEDICATED FOR PAIN AND SLEEP AT HS. HOURLY ROUNDS CONTINUE. CALL LITE IN REACH. SLEEPING IN REGULAR BED IN APARTMENT
--- NOTE | 2017-09-11 05:53 | NUR ---
SLEPT MOST OF THE NIGHT. TURNS SELF. VOIDED PER TOILET, UP WITH SBA, GAIT BELT, AND WALKER. CALL LITE IN REACH. SLEEPING IN REGULAR BED. HOURLY ROUNDS CONTINUE.
[2017-09-11 07:00] VITALS: BP 128/47
--- NOTE | 2017-09-11 16:21 | NUR ---
ASSUMMED CARE OF PT AT 0730, PT ALERT AND ORIENTED, TRANSFERS WITH SBA GB WALKER, VOID PER TOILET, AMBULATES TO GYM, PT COMPLAINS OF RIGHT KNEE PAIN, MEDICATED PER ORDER, DRESSING TO KNEE, CLEAN DRY AND INTACT, TAKING FOOD AND FLUIDS WELL, PT DID COMPLAIN OF SLIGHT DIZZINESS WITH THERAPY THIS PM, VSS 115/48 PULSE 87, PT STATES THE FEELING PASSED QUICKLY, PT PARTICIPATED IN ALL THERPIES, HOURLY ROUNDING COMPLETED, ASSESSMENT COMPLETE, WILL CONTINUE TO MONITOR. ORDER OBTAINED THIS PM FOR PT TO BE MOD I IN ROOM, PT EDUCATED ON MOD I .
--- NOTE | 2017-09-11 16:57 | NUR ---
BONNIE faxed initial referral information to pt [facility] at fax [phone] and BONNIE called [facility] and spoke with Priti who accepted referral. Pt to dc home with dtr on Thursday, BONNIE to fax final orders upon dc day for HH services to follow. SW to continue to follow to assist with finalizing safe dc plans.
[2017-09-11 19:40] VITALS: BP 113/40
--- NOTE | 2017-09-12 00:56 | NUR ---
ASSUMED CARE @ 1931-09/11-THURSDAY.SITS IN RECLINER WATCHING TV & VISITING W/ FAMILY.REFUSED POLAR PACK TO RIGHT KNEE.MODIFIED IND W/ WALKER IN ROOM. INFORMED PATIENT IF SHE HAS DIZZY SPELLS DURING NIGHT TO CALL FOR SBA FOR BRP. SEE PAIN MANAGEMENT @ 2030 FOR C/O RIGHT KNEE PAIN.PRN AMBIEN 5 MG ORAL GIVEN @ 2031-PER PT'S REQUEST.ON HOURLY ROUNDS.
--- NOTE | 2017-09-12 05:37 | NUR ---
REFUSED HS SNACK.SLEEPING SINCE 2199.NO EPISODE OF DIZZINESS DURING NIGHT. PLAN DISCHARGE ON 09/15-THURSDAY.
[2017-09-12 07:30] VITALS: BP 117/46
[2017-09-12 11:53] LABS: ABSOLUTE BASOPHILS 0.1 thou/uL (0.0-0.2); ABSOLUTE EOSINOPHILS 0.1 thou/uL (0.0-0.7); ABSOLUTE LYMPHOCYTES 1.3 thou/uL (0.8-5.3); ABSOLUTE MONOCYTES 1.1 thou/uL (0.0-1.2); ABSOLUTE NEUTROPHILS 5.2 thou/uL (1.6-8.1); BASOPHILS 1.1 %; EOSINOPHILS 1.4 %; HEMOGLOBIN 8.4 gm/dL (12.0-15.0); LYMPHOCYTES 16.3 %; MCH 28.9 pg (26.0-34.0); MCHC 32.5 g/dL (28.0-37.0); MCV 88.9 fL (80.0-100.0); MONOCYTES 14.1 %; MPV 8.1 fl. (7.2-11.1); NUCLEATED RBCS 0 /100WBC; PLATELET COUNT* 645 thou/uL (150-400); POLYS 67.1 %; RBC 2.92 mil/uL (4.20-5.00); WBC 7.8 thou/uL (4.0-11.0)
[2017-09-12 12:01] LABS: CALCIUM 8.6 mg/dL (8.5-10.1); CREATININE 1.4 mg/dL (0.6-1.3); POTASSIUM 4.8 mmol/L (3.5-5.1)
--- NOTE | 2017-09-12 15:10 | NUR ---
ASSUMED CARE AT 0730. ALERT ORIENTED PLEASANT COOPERATIVE. HX OF RT. DISTAL FEMUR FX. TRANSFERS WITH WALKER AND AMBULATES IN ROOM MODIFIED INDEPENDENT. MEDICATED WITH PRN PAIN MED FOR PAIN BEFORE THERAPIES START. FEEDS SELF TAKES MEDS WITHOUT DIFFICULTY.PARTICIPATING IN THERAPIES THROUGHOUT THE DAY.
[2017-09-12 19:20] VITALS: BP 124/33
[2017-09-12 20:55] VITALS: BP 126/47
--- NOTE | 2017-09-13 00:32 | NUR ---
ASSUMED CARE @ -SAT.SITS IN RECLINER WATCHING TV.NOT WEARING THIGH HIGH TEDS @ THIS TIME.REFUSED POLAR PACK.BP @ .BP RECHECKED @ .SEE PAIN MANAGEMENT @ 2103.PRN AMBIEN 5 MG ORAL GIVEN @ 2101-PER PT'S REQUEST.ON HOURLY ROUNDS.MODIFIED IND.W/ WALKER IN ROOM.
--- NOTE | 2017-09-13 05:06 | NUR ---
SLEEPING SINCE 2199.REFUSED HS SNACK.PLAN-DC HOME THURSDAY-09/15.PER PATIENT-PLAN IS TO DC JAY BEFORE DISCHARGE.
[2017-09-13 07:30] VITALS: BP 110/50
--- NOTE | 2017-09-13 14:41 | NUR ---
ASSUMED CARE AT 0730. ALERT ORIENTED PLEASANT COOPERATIVE. HX OF RT. DISTAL FEMUR FX. PT. IS MODIFIED INDEPENDENT IN HER ROOM. TRANSFERS SAFELY AND AMBULATING TO BR AND UP IN RECLINER WITH BLES ELEVATED. DENIES PAIN OR REQUESTS. APPETITE GOOD FEEDS SELF TAKES MEDS WITHOUT DIFFICULTY. HAS VISITORS THIS AFTERNOON IN HER ROOM.
--- NOTE | 2017-09-13 17:31 | NUR ---
PT. UP IN RECLINER AT BEDSIDE, Q 1 HR. ROUNDING DONE. DENIES REQUESTS.
[2017-09-13 19:30] VITALS: BP 114/43
--- NOTE | 2017-09-14 01:07 | NUR ---
ASSUMED CARE @ 1924-09/13-THURSDAY.SITS IN RECLINER W/ LE'S UP WATCHING TV.NOT WEARING TEDS @ THIS TIME.REFUSED ICE PACK TO RIGHT KNEE.SEE PAIN MANAGEMENT @ 2020.PRN AMBIEN 5 MG ORAL GIVEN ALSO @ 2020-PER PT'S REQUEST.IN BED NOW @ 2144-STILL WATCHING TV.MODIFIED IND.W/WALKER IN ROOM.AWAKE @ 2309 W/ NO RELIEF FROM PAIN MED GIVEN @ 2020.PATIENT NOT AWARE THAT SHE HAS ANOTHER ALTERNATE PAIN MED W/C IS OXY IR 5 MG ORAL & GIVEN @ 2309.SNORING @ 2354.ON HOURLY ROUNDS.
--- NOTE | 2017-09-14 06:32 | NUR ---
SLEEPING SINCE 2199.REFUSED HS SNACK.AWAKE BRIEFLY @ 2310 & GIVEN OTHER PAIN MED.SLEPT GOOD AFTER TAKING PAIN MED @ 2310.AWAKENED @ 0615 FOR MED.FOR DISCHARGE 09/15-THURSDAY.
[2017-09-14 07:51] VITALS: BP 126/52
[2017-09-14 12:39] VITALS: BP 126/52
[2017-09-14 12:55] VITALS: BP 126/52
--- NOTE | 2017-09-14 15:04 | D ---
[facility] [address] [place] [address] DISCHARGE SUMMARY Name: LYNDADAKOTAKLEBEREVE Rima Room: [address] IN M.R.#: [id number] Admission: 08/31/17 Attend Phys: Robyn Hodgson DO Discharge: Date of : 42 Report #: [id number] THIS REPORT FOR: //name// CC: Parisajan Chapman Robyn Hodgson DISCHARGE DIAGNOSIS: Distal femur fracture post orthopedic intervention. DISCHARGE DISPOSITION: To home with home health PT, OT and nursing. The patient did progress well in her therapies to a modified independent level of care. She will be discharged home with home health PT, OT and nursing. MEDICATIONS: Reviewed, reconciled by myself and are available on the MAR. Appropriate prescriptions for one month's time will put on to her chart as needed. INSTRUCTIONS: 1. Notifications for physician were given. 2. She will follow with Ortho within 1 week and her primary care physician within one week. 3. Fall precautions and front-wheeled walker for ambulation. DISCHARGE PHYSICAL EXAMINATION: GENERAL: Alert, oriented, in no apparent distress. VITAL SIGNS: Reviewed and are stable. HEENT: Head atraumatic, normocephalic. Pupils equal, round and reactive. ABDOMEN: Soft, nontender and nondistended. NEUROLOGIC: Cranial nerves 2-12 are grossly intact, with no focal neuro deficits. EXTREMITIES: A 5/5 strength in the bilateral upper and lower extremities. SKIN: Warm and dry. <ELECTRONICALLY SIGNED> By: Robyn Hodgson DO 09/14/17 1504 1405 [id number] Hodgson DO /nt
--- NOTE | 2017-09-14 16:31 | NUR ---
ASSUMED CARE AT 0730. ALERT ORIENTED, PLEASANT COOPERATIVE. HX OF RT. DISTAL FEMUR FX. MODIFIED INDEPENDENT IN ROOM. PARTICIPATING IN THERAPIES THROUGHOUT THE DAY. CALLED ORTHO RE REMOVAL OF JAY FROM KNEE JANNETTE GILBERT HERE AND REMOVED THEM AT LUNCH TIME. INCISION OPEN TO AIR. DENIED NEED FOR PRN MED WHEN OFFERED THIS A.M. NO CONCERNS OR ISSUES STATED. AMBULATES WITH WALKER TO BR ABLE TO DO ALL HYGEINE AND CLOTHING ADJUSTMENTS.
--- NOTE | 2017-09-14 17:56 | NUR ---
HOURLY ROUNDING EVERY ONE HR. DENIES REQUESTS OR CONCERNS.
[2017-09-14 19:47] VITALS: BP 120/44
--- NOTE | 2017-09-14 23:20 | NUR ---
ASSUMED CARE AT 1930. PATIENT S/P RT FEMUR FX. ON MODIFIED INDEPENDENCE IN ROOM. UP TO TOILET WITH WALKER. SLEEPING IN REGULAR BED. TAKES PILLS WHOLE WITH WATER. TURNS SELF. RT KNEE INCISION ORGANIC CHEMIST. HEALING OBSERVED. REFUSED COLACE. REFUSED HS SNACK. TAKES ONE PAIN PILL AT HS. CALL LITE IN REACH. HOURLY ROUNDS CONTINUE. HAPPY TO BE DISCHARGING TOMORROW.
[2017-09-15 04:32] LABS: HEMATOCRIT 26.8 % (37.0-47.0); HEMOGLOBIN 8.6 gm/dL (12.0-15.0); MCH 28.5 pg (26.0-34.0); MCHC 32.2 g/dL (28.0-37.0); MCV 88.4 fL (80.0-100.0); MPV 8.4 fl. (7.2-11.1); RBC 3.03 mil/uL (4.20-5.00); RDW-CV 16.3 % (10.5-14.5); WBC 8.9 thou/uL (4.0-11.0)
[2017-09-15 04:38] LABS: ALBUMIN 2.3 g/dL (3.4-5.0); CALCIUM 8.6 mg/dL (8.5-10.1); CREATININE 1.6 mg/dL (0.6-1.3); POTASSIUM 5.4 mmol/L (3.5-5.1); TOTAL BILIRUBIN 0.3 mg/dL (<0.1-1.0); TOTAL PROTEIN 5.9 g/dL (6.4-8.2)
--- NOTE | 2017-09-15 06:07 | NUR ---
SLEPT MOST OF THE NIGHT. UP TO VOID PER TOILET. MOD I IN ROOM, NO ASSISTANCE NEEDED. NO UNSAFE BEHAVIORS NOTED. TURNS SELF. SLEPT IN REGULAR BED. CALL LITE IN REACH. HOURLY ROUNDS CONTINUE. DENIES PAIN.
[2017-09-15 07:30] VITALS: BP 145/58
[2017-09-15 09:58] VITALS: BP 145/58
[2017-09-15 10:23] VITALS: BP 145/58
--- NOTE | 2017-09-15 10:26 | NUR ---
Pt to dc home with family today and services to follow. BONNIE met with pt who did not have any other needs or concerns and expresses readiness to return home safely. BONNIE faxed final orders and med list to [facility] at fax [phone].
--- NOTE | 2017-09-15 14:21 | NUR ---
PT READY FOR DISCHARGE TO HOME WITH DAUGHTER. PT IS ALERT AND ORIENTATED AND AWARE OF FALL PRECAUTIONS. PRN FOR PAIN OF RT.KNEE GIVEN TODAY WITH GOOD EFFECT. PT AMBULATES WITH STEADY GAIT AND WALKER AND IS MOD I IN ROOM TODAY. INCISION TO RT. KNEE INTACT AND WELL HEALED. DISCHARGE INSTRUCTIONS DISCUSSED AND PT AWARE OF NEED TO MAKE APPOINTMANTS FOR FOLLOW UPS WITH DOCTORS. TO CAR WITH PT FOR CAR TRANSFERR WITH ALL BELONGINGS.
--- NOTE | 2017-10-06 13:29 | PLAN ---
[address] [address] REHAB UNIT PLAN OF CARE Name: EVE COLLADO Room: [address] IN .R.#: [id number] Admission: 08/31/17 Attend Phys: Robyn Hodgson DO Discharge: 09/15/17 Date of : 41 Report #: [id number] THIS REPORT FOR: //name// CC: Parisa Hodgson OVERALL PLAN OF CARE This is a 77-year-old female admitted to inpatient rehabilitation to facilitate safe discharge home, status post fall from standing height, sustaining a right periprosthetic distal femur fracture, status post orthopedic intervention with ongoing needs in physical and occupational therapy as well as speech and language pathology. She has multiple medical comorbidities requiring daily medical care, including hypertension, history of [place] and history of atrial fibrillation. Her previous level of function was independent with activities of daily living. Her current level of function is [id number] assistance of 1-2 depending on therapy, activity and time of day. Estimated length of stay is 12-14 days with discharge disposition to the home setting. Medical prognosis is good. Rehabilitation prognosis is good. Physical therapy will see the patient 60-90 minutes per day, 5 days per week, working on upper and lower body strength, balance, coordination and navigation. Occupational therapy will work with the patient 60-90 minutes per day, 5 days per week, working on upper and lower body strength, balance, coordination, navigation, bathing, dressing, and toileting. This is an overall plan of care. It may change from time to time. We will team weekly and make changes to plan of care as needed. <ELECTRONICALLY SIGNED> By: Robyn Hodgson DO 10/06/17 1329 1101 [id number] Hodgson DO /nt
--- NOTE | 2017-10-06 13:29 | H ---
[place] [address] HISTORY AND PHYSICAL Name: EVE COLLADO Room: [address] IN .R.#: [id number] Admission: 08/31/17 Attend Phys: Robyn Hodgson, Discharge: 09/15/17 Date of : 42 Report #: [id number] THIS REPORT FOR: //name// CC: Parisa Hodgson DATE OF SERVICE: 08/31/2017 HISTORY OF PRESENT ILLNESS: This is a 77-year-old female admitted to Inpatient Rehabilitation to obtain safe discharge home status post right periprosthetic distal femur fracture post-orthopedic interventions. In the postoperative period, she was having ongoing debility with needs in physical and occupational therapy. No significant changes since the preadmission screening. Her previous level of function was independent with activities of daily living. Current level of function is rpbjthy-fk-[id number] assistance of 1-2 depending on therapy, activity and time of day. Estimated length of stay is 12-14 days with discharge disposition to the home setting, where she does have supportive family. She does have multiple medical comorbidities including hypertension, history of [place] and cardiac catheterization with stent placement, history of acute adult respiratory distress and acute respiratory failure and history of pneumonia. 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 ALLERGIES: No known drug allergies. LABORATORY DATA: Laboratories were reviewed. IMAGING DATA: Imaging was reviewed. MEDICATIONS: Medications reviewed, reconciled and are available in the MAR. PAST SURGICAL HISTORY: Right knee replacement and tonsillectomy. FAMILY HISTORY: Heart disease. SOCIAL HISTORY: No tobacco use, recreational drug use or alcohol. REVIEW OF SYSTEMS: A 14-point review of systems is done today and is negative, except as mentioned in the HPI. Specifically, no fever, chest pain, shortness of breath, [place] [address] HISTORY AND PHYSICAL Name: EVE COLLADO Room: [address] IN ..#: [id number] Admission: 08/31/17 Attend Phys: Robyn Hodgson DO Discharge: 09/15/17 Date of : 42 Report #: [id number] PHYSICAL EXAMINATION: GENERAL: Alert, oriented, in no apparent distress. VITAL SIGNS: Reviewed and are stable. HEENT: Head atraumatic, normocephalic. Pupils equal, round and reactive. ABDOMEN: Soft, nontender and nondistended. NEUROLOGIC: Cranial nerves 2-12 are grossly intact, with no focal neuro deficits and 5/5 strength in the bilateral upper and lower extremities. SKIN: Warm and dry. No rashes or lesions noted. ASSESSMENT: 1. Status post fall from standing height, sustaining a right periprosthetic distal femur fracture post-orthopedic intervention. 2. Multiple medical comorbidities requiring daily care, including hypertension; coronary artery disease with history of myocardial infarction, on Eliquis and aspirin; recent history of congestive heart failure with an ejection fraction of 45% and history of atrial fibrillation. PLAN: 1. Admission to inpatient rehabilitation. 2. PT, OT, speech, language, case management, nursing and HIMS to make evaluations and recommendations. 3. Plan of care is pending. We will team her weekly. 4. Hip precautions and consult Ortho as needed. <ELECTRONICALLY SIGNED> By: Robyn Hodgson DO 10/06/17 1329 1059 [id number] Hodgson DO /nt
== END 2017-09-15 14:15 | disposition home health service (06) | DRG 560 ==
LOC: M.REH 13:51
PROVIDERS: Family Medicine; Internal Medicine; ADMIT Physical Medicine & Rehabilitation
DX: M97.01XA Periprosthetic fracture around internal prosthetic right hip joint, initial encounter (principal); S72.401A Unspecified fracture of lower end of right femur, initial encounter for closed fracture; E46 Unspecified protein-calorie malnutrition; D62 Acute posthemorrhagic anemia; I50.9 Heart failure, unspecified; K21.9 Gastro-esophageal reflux disease without esophagitis; E78.5 Hyperlipidemia, unspecified; I25.10 Atherosclerotic heart disease of native coronary artery without angina pectoris; I11.0 Hypertensive heart disease with heart failure; R53.81 Other malaise; I48.91 Unspecified atrial fibrillation; Z96.651 Presence of right artificial knee joint; I25.2 Old myocardial infarction; Z87.01 Personal history of pneumonia (recurrent); Z91.041 Radiographic dye allergy status; Z68.32 Body mass index [BMI] 32.0-32.9, adult; Z79.82 Long term (current) use of aspirin; Z79.899 Other long term (current) drug therapy; W19.XXXA Unspecified fall, initial encounter; Y93.89 Activity, other specified; Y92.89 Other specified places as the place of occurrence of the external cause; Y99.8 Other external cause status; Z82.49 Family history of ischemic heart disease and other diseases of the circulatory system

== ENCOUNTER 2018-10-11 16:14 | Emergency (ER) | payer MEDICARE, OTHER ==
[~2018-10-11] VITALS: Ht 157.5 cm; Wt 81.7 kg
[~2018-10-11 16:14] MED LIST changes: +IRON325 PO
[2018-10-11 17:09] VITALS: BP 144/58
[2018-10-11] MEDS ORDERED: AMBIEN 5 MG TABL5 M1 PO (17:45)
== END 2018-10-11 17:09 | disposition home or self-care (01) ==
LOC: M.ERS 16:14
DX: S00.81XA Abrasion of other part of head, initial encounter (principal); I11.0 Hypertensive heart disease with heart failure; I50.9 Heart failure, unspecified; E78.5 Hyperlipidemia, unspecified; Z96.651 Presence of right artificial knee joint; Z91.09 Other allergy status, other than to drugs and biological substances; W18.39XA Other fall on same level, initial encounter; Y93.89 Activity, other specified; Y92.89 Other specified places as the place of occurrence of the external cause; Y99.8 Other external cause status

== ENCOUNTER → 2018-10-12 | Outpatient (CLI) | payer MEDICARE, OTHER | LOC: M.RAD 11:37 | DX: R06.02 Shortness of breath (principal) ==

== ENCOUNTER → 2018-10-19 | Outpatient (CLI) | payer MEDICARE, OTHER | LOC: M.ULTRA 13:00 | DX: I99.8 Other disorder of circulatory system (principal); I73.9 Peripheral vascular disease, unspecified ==

== ENCOUNTER → 2019-12-08 | Outpatient (CLI) | payer MEDICARE, OTHER ==
[~2019-12-08] VITALS: Ht 160 cm; Wt 84.8 kg
[~2019-12-08] MED LIST changes: +SYNTHROID75 MCG PO
[2019-12-08 10:03] LABS: HEMATOCRIT 43.2 % (37.0-47.0); HEMOGLOBIN 14.5 gm/dL (12.0-15.0); MCH 29.6 pg (26.0-34.0); MCHC 33.6 g/dL (28.0-37.0); MPV 9.9 fl. (7.2-11.1); RBC 4.91 mil/uL (4.20-5.00); RDW-CV 15.5 % (10.5-14.5); WBC 8.2 thou/uL (4.0-11.0)
[2019-12-08 10:11] VITALS: BP 160/64
[2019-12-08 10:14] LABS: ANION GAP 7 mmol/L (7-16); BUN 20 mg/dL (7-18); CALCIUM 8.4 mg/dL (8.5-10.1); CHLORIDE 106 mmol/L (98-107); CO2 24 mmol/L (21-32); CREATININE 1.7 mg/dL (0.6-1.3); GLUCOSE 134 mg/dL (70-99); POTASSIUM 4.6 mmol/L (3.5-5.1); SODIUM 137 mmol/L (136-145)
[2019-12-08 10:16] LABS: APTT 26.9 Seconds (25.0-31.3); PROTIME 10.3 Seconds (9.20-11.50)
[2019-12-08 10:19] LABS: ALKALINE PHOSPHATASE 127 U/L (46-116); CHOLESTEROL 146 mg/dL (<200); HDL CHOLESTEROL 77 mg/dL (>40); LDL CHOLESTEROL 55 mg/dL (<100); SGOT 26 U/L (15-37); SGPT 29 U/L (30-65); TC:HDL 1.9 Ratio (Not establshd); TOTAL BILIRUBIN 0.3 mg/dL (<0.1-1.0); TOTAL PROTEIN 7.1 g/dL (6.4-8.2); TRIGLYCERIDE 72 mg/dL (<150); VLDL 14 mg/dL (<40)
[2019-12-08 10:27] LABS: SERUM ASSESSMENT Clear
[2019-12-08 12:17] VITALS: BP 155/65
--- NOTE | 2019-12-13 08:37 | CARD ---
[address] [address] CARDIAC CATH REPORT Name: EVE COLLADO [id number] Admission: 12/08/19 Attend Phys: Gary Thomas MD Discharge: Date of : 42 Report #: [id number] THIS REPORT FOR: //name// cc: Parisa Chapman MD, Katrina MD ~ APPROVED REPORT Study performed: 12/08/2019 10:43:52 Patient Details Patient Status: Out-Patient Room #: The patient is a 79 year-old female Event Personnel Gary Thomas Instrument Maker Apprentice, Darian Maya RN Health Care Marketing Manager, José Porras ScrubJagdish Becki RTR Monitor Procedures Performed Art Access - R femoral artery, Left Heart Cath w/or w/o Coronaries LHC , Hemostasis w/ Mynx Admission/Lab Medications/Medications given during procedure Hydralazine (Apresoline) IV 10 mg Procedure Narrative The patient was brought electively to the Cardiac Catheterization Laboratory and was prepped and draped in a sterile manner. The right femoral was infiltrated with 1% Lidocaine subcutaneous anesthesia. A 6F Prosser sheath was inserted into the right femoral artery. Coronary angiography was performed using coronary diagnostic catheters. The right coronary system was accessed and visualized with a 6F JR4 catheter. The left coronary system was accessed and visualized with a 6F JL4 catheter. The left ventricle was accessed and visualized with a 6F Pigtail catheter. Left ventricular/Aortic Valve gradient assessed via catheter pullback. Pre-demployment femoral angiogram was performed . Closure device was deployed with a 6 Fr Mynx. The patient tolerated the procedure well and there were no complications associated with the procedure. There was no hematoma. Intraoperative Conscious Sedation Sedation start time: 11:39 Case end Time: 11:52 Fentanyl 25 mcg Versed 1 [place] [address] CARDIAC CATH REPORT Name: EVE COLLADO Room: [facility]#: [id number] Admission: 12/08/19 Attend Phys: Gary Thomas MD Discharge: Date of : 41 Report #: [id number] Fluoro Time: 1.8 minutes Dose: DAP 81376 cGycm2 755 mGy Contrast Type and Amount: Visipaque 100 ml Coronary Angiography The patient's coronary anatomy is right dominant. Diagnostic Cath Left Main The left main coronary artery is normal and bifurcates into a left anterior descending and circumflex coronary artery. LAD The left anterior descending coronary artery has minimal plaquing proximally. The mid and distal vessel are normal. Diagonal 1 The first diagonal branch is normal. Circumflex The circumflex coronary artery exhibits minimal 10% plaquing proximally. The mid and distal vessel are free of significant disease. OM1 The first obtuse marginal branch is normal. OM2 The second obtuse marginal branch has mild 20% plaquing proximally. Right Coronary The right coronary artery is mildly diffusely plaqued with 10% proximal 20% mid and 10% distal plaquing noted. R PDA The right posterior descending artery is normal. RPLV The right posterior lateral LV branch is normal. Left Ventriculography Left Ventriculography was not performed. Hemodynamics The aortic pressure is 185/63 mmHg with a mean of 76 mmHg. The left ventricular pressure is 186/6 mmHg with a mean of mmHg. The left ventricular end diastolic pressure is 18 mmHg. Conclusion 1. Moderate nonocclusive coronary artery disease as outlined above. 2. Mildly elevated left ventricular end-diastolic pressure consistent with acute diastolic heart failure. Recommendations 1. Continue medical management and aggressive risk factor modification. <ELECTRONICALLY SIGNED> By: Gary Thomas MD, FACC 12/13/19 0836 0836 [id number] Thomas MD, FACC /INF
== END | disposition home or self-care (01) ==
LOC: M.CL 09:28
PROVIDERS: ATTEND Internal Medicine Cardiovascular Disease
DX: I25.10 Atherosclerotic heart disease of native coronary artery without angina pectoris (principal); I11.0 Hypertensive heart disease with heart failure; I50.22 Chronic systolic (congestive) heart failure; I25.5 Ischemic cardiomyopathy; I48.0 Paroxysmal atrial fibrillation; E78.00 Pure hypercholesterolemia, unspecified; K21.9 Gastro-esophageal reflux disease without esophagitis; Z98.890 Other specified postprocedural states; Z79.899 Other long term (current) drug therapy

== ENCOUNTER → 2020-11-27 | Outpatient (CLI) | payer MEDICARE, OTHER ==
[2020-11-27 14:59] LABS: DIRECT BILIRUBIN 0.1 mg/dL (<0.1-0.3); TOTAL BILIRUBIN 0.3 mg/dL (<0.1-1.0); TOTAL PROTEIN 6.7 g/dL (6.4-8.2)
== END ==
LOC: M.MRI 13:09
PROVIDERS: ATTEND Family Medicine
DX: M43.16 Spondylolisthesis, lumbar region (principal); M47.816 Spondylosis without myelopathy or radiculopathy, lumbar region; M47.817 Spondylosis without myelopathy or radiculopathy, lumbosacral region; J84.9 Interstitial pulmonary disease, unspecified; I48.0 Paroxysmal atrial fibrillation; I25.5 Ischemic cardiomyopathy; Z79.899 Other long term (current) drug therapy; M48.061 Spinal stenosis, lumbar region without neurogenic claudication; M41.86 Other forms of scoliosis, lumbar region; M43.8X6 Other specified deforming dorsopathies, lumbar region

== ENCOUNTER → 2021-03-27 | Outpatient (CLI) | payer MEDICARE, OTHER ==
--- NOTE | 2021-03-27 13:15 | 2DMMODE ---
[place] [address] 2 D/M-MODE ECHOCARDIOGRAM Name: EVE COLLADO Room: [facility]#: [id number] Admission: 03/27/21 Attend Phys: Lorin Baca RN Discharge: Date of : 42 Date of Service: 03/27/21 1314 Report #: [id number] THIS REPORT FOR: cc: Parisa Chapman MD, Katrina MD Blick, David R. MD [facility] ~ APPROVED REPORT Study performed: 03/27/2021 11:08:24 EXAM: Comprehensive 2D, Doppler, and color-flow Echocardiogram Patient Location: Out-Patient BSA: 1.84 HR: 76 bpm BP: 162/80 mmHg Other Information Study Quality: Good Indications Aortic Valve Disease 2D Dimensions IVSd: 14.38 (7-11mm) LVOT Diam: 21.01 (18-24mm) LVDd: 46.13 mm PWd: 10.60 (7-11mm) Ascending Ao: 32.66 (22-36mm) LVDs: 32.58 (25-40mm) Aortic Root: 32.54 mm Volumes Left Atrial Volume (Systole) LA ESV Index: 16.80 mL/m2 Aortic Valve AoV Peak Baltazar.: 2.53 m/s AO Peak Gr.: 25.60 mmHg LVOT Max P.49 mmHg AO Mean Gr.: 14.34 mmHg LVOT Mean P.14 mmHg LVOT Max V: 1.06 m/s AO V2 VTI: 54.35 cm LVOT Mean V: 0.67 m/s NURY (VTI): 1.50 cm2 LVOT V1 VTI: 23.50 cm AI Lagrange: 3.49 m/s2 AI PHT: 362.00 [place] [address] 2 D/M-MODE ECHOCARDIOGRAM Name: EVE COLLADO Room: [facility]#: [id number] Admission: 03/27/21 Attend Phys: Lorin Baca RN Discharge: Date of : 42 Date of Service: 03/27/21 1314 Report #: [id number] Mitral Valve E/A Ratio: 0.59 MV Decel. Time: 236.20 ms MV E Max Baltazar.: 0.47 m/s MV PHT: 68.50 ms MVA (PHT): 3.21 cm2 TDI E/Lateral E': 5.22 E/Medial E': 5.22 Medial E' Baltazar.: 0.09 m/s Lateral E' Baltazar.: 0.09 m/s Pulmonary Valve PV Peak Baltazar.: 0.89 m/s PV Peak Gr.: 3.14 mmHg Tricuspid Valve RAP Estimate: 5.00 mmHg TR Peak Gr.: 19.94 mmHg RVSP: 24.94 mmHg PA Pressure: 24.94 mmHg Left Ventricle The left ventricle is normal size. Paradoxical septum motion noted There is normal left ventricular wall thickness. Left ventricular systolic function is borderline. LVEF is 50-55%. Grade I - abnormal relaxation pattern. Right Ventricle The right ventricle is normal size. The right ventricular systolic function is normal. Atria The left atrium size is normal. The right atrium size is normal. Aortic Valve Aortic valve is modrately calcified. Moderate aortic regurgitation. Mild aortic stenosis. Mitral Valve The mitral valve is normal in structure. Trace to mild mitral regurgitation. No evidence of mitral valve stenosis. Tricuspid Valve The tricuspid valve is normal in structure. [place] [address] 2 D/M-MODE ECHOCARDIOGRAM Name: EVE COLLADO Room: [facility]#: [id number] Admission: 03/27/21 Attend Phys: Lorin Baca RN Discharge: Date of : 42 Date of Service: 03/27/21 1314 Report #: [id number] Pulmonic Valve The pulmonary valve is normal in structure. There is no pulmonic valvular regurgitation. Great Vessels The aortic root is normal in size. IVC is normal in size and collapses >50% with inspiration. Pericardium There is no pericardial effusion. <Conclusion> Left ventricular systolic function is borderline. LVEF is 50-55%. Mild aortic stenosis. Moderate aortic regurgitation. Trace to mild mitral regurgitation. <ELECTRONICALLY SIGNED> By: Bonifacio Richards MD, FACC 03/27/21 1314 13 13 Bonifacio Richards MD, FACC /INF
== END ==
LOC: M.CRD 10:57
PROVIDERS: ATTEND Registered Nurse
DX: I08.3 Combined rheumatic disorders of mitral, aortic and tricuspid valves (principal)